=== PATIENT | female | born 1965 | race Caucasian/White ===

== ENCOUNTER 2016-09-29 17:20 | Emergency (ER) | payer BC ==
[~2016-09-29] VITALS: Ht 157.5 cm; Wt 74.8 kg
[2016-09-29 17:27] VITALS: BP_SYST 109
[2016-09-29] MEDS ORDERED: IBUPROFEN 600 MG TABLET PO ONE (18:00)
[2016-09-29 18:40] VITALS: BP_SYST 111
== END 2016-09-29 18:40 | disposition home or self-care (01) ==
LOC: SED 17:20
DX: S46.912A Strain of unspecified muscle, fascia and tendon at shoulder and upper arm level, left arm, initial encounter (principal); S29.012A Strain of muscle and tendon of back wall of thorax, initial encounter; I48.91 Unspecified atrial fibrillation; V89.2XXA Person injured in unspecified motor-vehicle accident, traffic, initial encounter; Y93.89 Activity, other specified; Y92.411 Interstate highway as the place of occurrence of the external cause; Y99.8 Other external cause status
CPT/HCPCS: 71100; 72072-TC; 99284